=== PATIENT | female | born 1955 | race African-American/Black ===

== ENCOUNTER 2017-06-20 18:37 | Emergency (ER) | payer BC ==
[~2017-06-20] VITALS: Ht 172.7 cm; Wt 109.1 kg
[2017-06-20 18:39] VITALS: TEMP 98
[2017-06-20] MEDS ORDERED: NORVASC 10MG10 MG PO (18:41)
[2017-06-20] MEDS ORDERED: LEXAPRO 10MG10 MG PO (18:41)
[2017-06-20 19:54] VITALS: BP 129/85; PULSE 82
[2017-06-21] MEDS ORDERED: NORCO 325 MG-51 TAB PO (18:10)
== END 2017-06-20 19:54 | disposition home or self-care (01) ==
LOC: COL.ER 18:37
DX: S60.221A Contusion of right hand, initial encounter (principal); S89.91XA Unspecified injury of right lower leg, initial encounter; S09.90XA Unspecified injury of head, initial encounter; W01.0XXA Fall on same level from slipping, tripping and stumbling without subsequent striking against object, initial encounter; Y93.K1 Activity, walking an animal; Y92.009 Unspecified place in unspecified non-institutional (private) residence as the place of occurrence of the external cause

== ENCOUNTER 2017-06-21 17:08 | Emergency (ER) | payer BC ==
[~2017-06-21] VITALS: Ht 172.7 cm; Wt 109.1 kg
[~2017-06-21 17:08] MED LIST: LEXAPRO 10MG10 MG PO; NORVASC 10MG10 MG PO
[2017-06-21 17:11] VITALS: BP 135/75; TEMP 98.4
[2017-06-21] MEDS ORDERED: NORCO 325 MG-51 TAB PO (18:10)
[2017-06-21 18:26] VITALS: PULSE 79
== END 2017-06-21 18:34 | disposition home or self-care (01) ==
LOC: COL.ER 17:08
DX: S62.101A Fracture of unspecified carpal bone, right wrist, initial encounter for closed fracture (principal); I10 Essential (primary) hypertension; F32.9 Major depressive disorder, single episode, unspecified; W19.XXXA Unspecified fall, initial encounter; Y92.009 Unspecified place in unspecified non-institutional (private) residence as the place of occurrence of the external cause

== ENCOUNTER → 2019-04-02 | Outpatient (CLI) | payer BC ==
[~2019-04-02] MED LIST changes: +NORCO 325 MG-51 TAB PO
[2019-04-02 18:18] LABS: BASO % 0.8 % (0.0-2.0); EOS # 0.1 (0.0-0.7); EOS % 1.8 % (0-4.0); GRAN # 2.8 (1.4-6.5); GRAN % 55.5 % (42.2-75.2); HEMATOCRIT 39.3 % (37.0-47.0); HEMOGLOBIN 12.7 g/dl (12.5-16.0); LYMPH # 1.7 (1.2-3.4); LYMPH % 34.3 % (20.0-51.0); MEAN CELL VOLUME 92 fl (80.0-100.0); MEAN CORPUSCULAR HEMOGLOBIN 30 pg (27.0-31.0); MEAN CORPUSCULAR HGB CONC 32 g/dl (33.0-37.0); MEAN PLATELET VOLUME 11.5 fl (7.4-10.4); MONO # 0.4 (0.1-0.6); MONO % 7.2 % (1.7-9.3); PLATELET COUNT 272 K/mm3 (130-400); RED BLOOD COUNT 4.29 M/mm3 (4.10-5.30); REDCELL DISTRIBUTION WIDTH-CV 13.3 % (11.5-14.5)
[2019-04-02 18:28] LABS: ALBUMIN 4.2 gm/dL (3.5-5.0); BILIRUBIN,TOTAL 0.2 mg/dL (0.0-1.0); CALCIUM 9.1 mg/dL (8.4-10.2); CREATININE, serum 0.71 (0.52-1.25); POTASSIUM 4.2 mmol/L (3.4-5.0); TOTAL PROTEIN 7.4 gm/dL (6.4-8.2)
[2019-04-02 20:03] LABS: THYROID STIMULATING HORMONE 1.28 uIU/mL (0.465-4.680)
== END ==
LOC: ZLAB.FHCC 16:07 → ZCOL.LAB 16:07
PROVIDERS: Family Medicine
DX: R06.02 Shortness of breath (principal); R53.83 Other fatigue

== ENCOUNTER 2019-05-31 17:07 | Emergency (ER) | payer BC ==
[~2019-05-31] VITALS: Ht 172.7 cm; Wt 106.8 kg
[2019-05-31 17:13] VITALS: BP 156/91; TEMP 96.9
[2019-05-31] MEDS ORDERED: ZOLOFT 100MG100 MG PO (17:33)
[2019-05-31] MEDS ORDERED: ULTRAM 50MG TAB50 MG PO (19:07)
[2019-05-31 19:09] VITALS: PULSE 65
== END 2019-05-31 19:20 | disposition home or self-care (01) ==
LOC: COL.ER 17:07
DX: M79.662 Pain in left lower leg (principal); I10 Essential (primary) hypertension; F32.9 Major depressive disorder, single episode, unspecified; F41.9 Anxiety disorder, unspecified; Z88.0 Allergy status to penicillin; Z90.710 Acquired absence of both cervix and uterus

== ENCOUNTER 2019-06-15 12:32 | Emergency (ER) | payer BC ==
[~2019-06-15] VITALS: Ht 172.7 cm; Wt 113.6 kg
[~2019-06-15 12:32] MED LIST changes: +ULTRAM 50MG TAB50 MG PO; +ZOLOFT 100MG100 MG PO
[2019-06-15 12:44] VITALS: BP 145/72; TEMP 97.3
[2019-06-15 13:29] VITALS: PULSE 89
== END 2019-06-15 13:27 | disposition home or self-care (01) ==
LOC: COL.ER 12:32
DX: M25.562 Pain in left knee (principal); I10 Essential (primary) hypertension; F32.9 Major depressive disorder, single episode, unspecified; F41.9 Anxiety disorder, unspecified; Z90.710 Acquired absence of both cervix and uterus; Z98.890 Other specified postprocedural states
CPT/HCPCS: L1846

== ENCOUNTER → 2019-12-01 | Outpatient (CLI) | payer BC | LOC: COL.RAD 12:45 | DX: R06.02 Shortness of breath (principal) ==

== ENCOUNTER → 2019-12-29 | Outpatient (CLI) | payer BC | LOC: COL.VAS 12-22 14:00 | DX: I51.7 Cardiomegaly (principal); I34.0 Nonrheumatic mitral (valve) insufficiency ==

== ENCOUNTER → 2020-03-10 | Outpatient (CLI) | payer BC ==
[~2020-03-10] VITALS: Ht 172.7 cm; Wt 119.8 kg
[2020-03-10 10:33] VITALS: BP 154/92; PULSE 88
[2020-03-10 12:00] VITALS: BP 177/93; PULSE 114
[2020-03-10 12:01] VITALS: BP 167/84; PULSE 103
[2020-03-10 12:02] VITALS: BP 158/81; PULSE 99
[2020-03-10 12:03] VITALS: BP 158/88; PULSE 96
== END ==
LOC: COL.CARD 10:18
DX: R06.09 Other forms of dyspnea (principal)
CPT/HCPCS: A9500; J2785

== ENCOUNTER 2020-04-12 08:48 | Day surgery (SDC) | payer BC ==
[~2020-04-12] VITALS: Ht 172.7 cm; Wt 119.7 kg
[2020-04-12] VITALS (10 sets, daily range): BP systolic 129–157; BP diastolic 62–82; PULSE 62–84; TEMP 98.5
[2020-04-12 09:42] LABS: HEMATOCRIT 38.6 % (37.0-47.0); HEMOGLOBIN 12.6 g/dl (12.5-16.0); MEAN CELL VOLUME 90 fl (80.0-100.0); MEAN CORPUSCULAR HEMOGLOBIN 30 pg (27.0-31.0); MEAN CORPUSCULAR HGB CONC 33 g/dl (33.0-37.0); MEAN PLATELET VOLUME 10.4 fl (7.4-10.4); PLATELET COUNT 253 K/mm3 (130-400); RED BLOOD COUNT 4.27 M/mm3 (4.10-5.30); REDCELL DISTRIBUTION WIDTH-CV 13.2 % (11.5-14.5)
[2020-04-12 09:47] LABS: PROTHROMBIN TIME 11.5 SECONDS (9.7-12.8)
[2020-04-12 10:02] LABS: CALCIUM 8.7 mg/dL (8.4-10.2); CREATININE, serum 0.86 (0.52-1.25)
[2020-04-12] MEDS ORDERED: MELATONIN5 M1 SL (10:25)
--- NOTE | 2020-04-12 13:12 | NUR ---
Pt to procedure at this time.
--- NOTE | 2020-04-12 13:17 | NUR ---
SEE MEREGE FOR ALL MEDICATION ADMIN. TIMES AND INTRA AND POST SEDATION ASSESSMENTA
--- NOTE | 2020-04-12 14:00 | NUR ---
Report from Rachell MENJIVAR. 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 Alert and oriented, denies pain and needs at this time. Right Tband with 13 cc air CD&I, good pulses and cap refill < 3 secs noted. VSS.
--- NOTE | 2020-04-12 16:45 | NUR ---
Right Tband deflated of 13 cc air, removed and presure dressing applied. INT discontinued intact. Discharge instructions given and transferred to private car by alanna
== END 2020-04-12 16:50 | disposition home or self-care (01) ==
LOC: COL.CAR 08:48
PROVIDERS: Internal Medicine Cardiovascular Disease
DX: I25.10 Atherosclerotic heart disease of native coronary artery without angina pectoris (principal); I10 Essential (primary) hypertension; Z20.828 Contact with and (suspected) exposure to other viral communicable diseases; E78.5 Hyperlipidemia, unspecified; Z88.0 Allergy status to penicillin
CPT/HCPCS: J1644; J2250; J3010

== ENCOUNTER → 2020-08-30 | Outpatient (CLI) | payer BC ==
[~2020-08-30] MED LIST changes: +MELATONIN5 M1 SL
== END ==
LOC: MC.RAD 14:52
DX: Z12.31 Encounter for screening mammogram for malignant neoplasm of breast (principal)

== ENCOUNTER 2021-05-10 23:36 | Emergency (ER) | payer BC ==
[2021-05-11 00:13] VITALS: TEMP 98
[2021-05-11 00:42] LABS: BASO % 0.6 % (0.0-2.0); EOS % 0.6 % (0-4.0); GRAN # 4.7 K/mm3 (1.4-6.5); GRAN % 71.2 % (42.2-75.2); HEMATOCRIT 39.9 % (37.0-47.0); LYMPH # 1.4 K/mm3 (1.2-3.4); LYMPH % 20.6 % (20.0-51.0); MEAN CELL VOLUME 89 fl (80.0-100.0); MEAN CORPUSCULAR HEMOGLOBIN 29 pg (27.0-31.0); MEAN CORPUSCULAR HGB CONC 33 g/dl (33.0-37.0); MEAN PLATELET VOLUME 10.8 fl (7.4-10.4); MONO # 0.4 K/mm3 (0.1-0.6); MONO % 6.2 % (1.7-9.3); PLATELET COUNT 221 K/mm3 (130-400); REDCELL DISTRIBUTION WIDTH-CV 13.4 % (11.5-14.5)
[2021-05-11 00:49] LABS: ALANINE AMINOTRANSFERASE 18 U/L (0-55); ALBUMIN 4.1 gm/dL (3.4-4.8); ALKALINE PHOSPHATASE 114 U/L (40-150); ANION GAP 14 mmol/L (7-16); AST,SGOT 16 U/L (5-34); BILIRUBIN,TOTAL 0.5 mg/dL (0.2-1.2); BLOOD UREA NITROGEN 13 mg/dL (10-20); CALCIUM 9.5 mg/dL (8.4-10.2); CARBON DIOXIDE 18 mmol/L (23-31); CHLORIDE 108 mmol/L (98-107); CREATININE, serum 0.89 mg/dL (0.57-1.11); GLUCOSE 145 mg/dL (70-99); POTASSIUM 4.1 mmol/L (3.5-4.5); SODIUM 140 mmol/L (136-145); TOTAL PROTEIN 7.7 gm/dL (6.2-8.1)
[2021-05-11 01:01] LABS: TROPONIN-I < 0.010 ng/mL (0.00-0.033)
[2021-05-11 03:15] VITALS: BP 162/102; PULSE 103
== END 2021-05-11 03:15 | disposition home or self-care (01) ==
LOC: COL.ER 23:36
PROVIDERS: Emergency Medicine
DX: F41.9 Anxiety disorder, unspecified (principal); R07.89 Other chest pain; F32.A Depression, unspecified; I10 Essential (primary) hypertension; Z79.899 Other long term (current) drug therapy
CPT/HCPCS: J2060; J2405; J7030

== ENCOUNTER → 2022-01-17 | Outpatient (CLI) | payer BC | LOC: COL.RAD 08:56 | DX: M48.02 Spinal stenosis, cervical region (principal); M48.03 Spinal stenosis, cervicothoracic region; Q76.49 Other congenital malformations of spine, not associated with scoliosis ==

== ENCOUNTER → 2022-02-13 | Outpatient (CLI) | payer BC | LOC: COL.RAD 13:21 | DX: M77.32 Calcaneal spur, left foot (principal) ==

== ENCOUNTER → 2022-03-13 | Outpatient (RCR) | payer BC | END | disposition home or self-care (01) | LOC: WSPT | DX: M48.02 Spinal stenosis, cervical region (principal) ==

== ENCOUNTER 2022-07-17 16:35 | Emergency (ER) | payer BC ==
[~2022-07-17] VITALS: Ht 172.7 cm; Wt 121.4 kg
[2022-07-17 16:41] VITALS: TEMP 98
[2022-07-17 18:25] LABS: BASO % 0.6 % (0.0-2.0); EOS # 0.1 K/mm3 (0.0-0.7); EOS % 1.6 % (0.0-4.0); GRAN # 3.4 K/mm3 (1.4-6.5); HEMATOCRIT 42.9 % (37.0-47.0); HEMOGLOBIN 13.6 g/dl (12.5-16.0); LYMPH # 2.7 K/mm3 (1.2-3.4); LYMPH % 39.8 % (20.0-51.0); MEAN CELL VOLUME 93 fl (80.0-100.0); MEAN CORPUSCULAR HEMOGLOBIN 30 pg (27-31); MEAN CORPUSCULAR HGB CONC 32 g/dl (33.0-37.0); MEAN PLATELET VOLUME 11.2 fl (7.4-10.4); MONO # 0.5 K/mm3 (0.1-0.6); MONO % 6.9 % (1.7-9.3); PLATELET COUNT 299 K/mm3 (130-400); REDCELL DISTRIBUTION WIDTH-CV 13.1 % (11.5-14.5)
[2022-07-17 18:28] LABS: ALANINE AMINOTRANSFERASE 18 U/L (0-55); ALBUMIN 3.9 gm/dL (3.4-4.8); ALKALINE PHOSPHATASE 114 U/L (40-150); ANION GAP 15 mmol/L (7-16); AST,SGOT 15 U/L (5-34); BILIRUBIN,TOTAL 0.2 mg/dL (0.2-1.2); BLOOD UREA NITROGEN 20 mg/dL (10-20); CALCIUM 9.4 mg/dL (8.4-10.2); CARBON DIOXIDE 19 mmol/L (23-31); CHLORIDE 108 mmol/L (98-107); CREATININE, serum 0.92 mg/dL (0.57-1.11); GLUCOSE 95 mg/dL (70-99); SODIUM 142 mmol/L (136-145); TOTAL PROTEIN 7.8 gm/dL (6.2-8.1)
[2022-07-17 18:34] LABS: TROPONIN-I < 0.010 ng/mL (0.00-0.033)
[2022-07-17 21:56] VITALS: BP 147/78; PULSE 86
[2023-06-09] MEDS ORDERED: WELLBUTRIN XL300 M1 PO (10:46)
[2023-06-09] MEDS ORDERED: LIPITOR20 MG PO (10:46)
[2023-06-09] MEDS ORDERED: GLUCOPHAGE XR500 M1 PO (10:47)
[2023-06-09] MEDS ORDERED: CENTRUM SILVER1 CTB PO (10:47)
[2023-06-09] MEDS ORDERED: DESYREL 100MG100 MG PO (10:48)
[2023-06-09] MEDS ORDERED: NATURAL IRON65 MG (10:49)
[2023-06-09] MEDS ORDERED: BACTRIM DS 8001 TAB PO (14:57)
[2023-06-09] MEDS ORDERED: NORCO 325 MG-51 TAB PO (14:57)
== END 2022-07-17 21:59 | disposition home or self-care (01) ==
LOC: COL.ER 16:35
PROVIDERS: Personal Emergency Response Attendant
DX: R07.89 Other chest pain (principal); Z95.5 Presence of coronary angioplasty implant and graft; Z28.310 Unvaccinated for COVID-19

== ENCOUNTER 2023-09-09 18:08 | Emergency (ER) | payer MEDICARE, BC ==
[~2023-09-09] VITALS: Ht 172.7 cm; Wt 115.9 kg
[~2023-09-09 18:08] MED LIST changes: +BACTRIM DS 8001 TAB PO; +CENTRUM SILVER1 CTB PO; +DESYREL 100MG100 MG PO; +GLUCOPHAGE XR500 M1 PO; +LIPITOR20 MG PO; +NATURAL IRON65 MG; +WELLBUTRIN XL300 M1 PO
[2023-09-09 18:27] VITALS: TEMP 98.5
[2023-09-09] MEDS ORDERED: Naproxen 250 MG TAB PO ONE (19:30)
[2023-09-09] MEDS ORDERED: Enoxaparin 120 MG/0.8 ML SYRINGE SQ ONE (19:30)
[2023-09-09 19:40] VITALS: BP 149/93; PULSE 91
== END 2023-09-09 19:40 | disposition home or self-care (01) ==
LOC: COL.ER 18:08
DX: M25.561 Pain in right knee (principal); R79.1 Abnormal coagulation profile
CPT/HCPCS: J1650

== ENCOUNTER → 2023-09-10 | Outpatient (CLI) | payer MEDICARE, BC | LOC: COL.RAD 05:14 | DX: S09.90XA Unspecified injury of head, initial encounter (principal); X58.XXXA Exposure to other specified factors, initial encounter ==

== ENCOUNTER 2023-10-10 07:55 | Outpatient (RCR) | payer MEDICARE, BC | END 2023-10-12 | disposition home or self-care (01) | LOC: WSPT | DX: M25.561 Pain in right knee (principal); Z98.890 Other specified postprocedural states ==